=== PATIENT | female | born 1985 | race Caucasian/White ===

== ENCOUNTER 2017-11-13 20:31 | Emergency (ER) | payer OTHER ==
[~2017-11-13] VITALS: Ht 167.6 cm; Wt 68.0 kg
[~2017-11-13 20:31] MED LIST: AMOXIL 875 MG875 MG PO; AUGMENTIN 875-1 EACH PO; BACTRIM DS 8001 TAB PO; CYCLOBENZAPRINE5 M2 PO; IBUPROFEN800 M1 PO; MOBIC 15MG15 MG PO; VICODIN5-300 PO; ZOLMITRIPTAN2.5 MG PO
[2017-11-13] MEDS ORDERED: NEOMYCIN-POLYMY10 ML (22:03)
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
[2017-11-13 23:14] LABS: ABSOLUTE BASOPHIL COUNT 0 /CUMM (0.0-0.2); ABSOLUTE EOSINOPHIL COUNT 0.3 /CUMM (0.0-0.7); ABSOLUTE GRANULOCYTE CT 6.6 /CUMM (1.4-6.5); ABSOLUTE LYMPH COUNT 1.9 /CUMM (1.2-3.4); ABSOLUTE MONOCYTE COUNT 0.4 /CUMM (0.10-0.60); BASOPHIL % 0.3 % (0.0-2.0); EOSINOPHIL % 3.7 % (0-5); GRANULOCYTE % 71.2 % (42.2-75.2); HEMATOCRIT 39.8 % (37-47); MEAN CORPUSCULAR HGB 31.7 PG (27.0-31.0); MEAN CORPUSCULAR HGB CONC 35.6 G/DL (33.0-37.0); MEAN PLATELET VOLUME 8.1 FL (7.4-10.4); PLATELET COUNT 206 /CUMM (130-400); RBC DISTRIBUTION WIDTH 12.9 % (11.5-14.5); RED BLOOD CELL CT 4.47 /CUMM (4.20-5.40); WHITE BLOOD CELL COUNT 9.3 /CUMM (4.8-10.8)
[2017-11-13] MEDS ORDERED: KETOROLAC TROME10 M1 PO (23:45)
[2017-11-13] MEDS ORDERED: BACTRIM DS TAB1 EACH PO (23:45)
[2017-11-13] MEDS ORDERED: AMOXICILLIN500 M2 PO (23:45)
[2017-11-13 23:50] VITALS: BP 118/73
== END 2017-11-13 23:56 ==
LOC: ERH 20:31
PROVIDERS: Internal Medicine Interventional Cardiology
DX: L03.116 Cellulitis of left lower limb (principal); L08.0 Pyoderma
CPT/HCPCS: 87070; 96372; J1885; J2001

== ENCOUNTER 2017-11-16 16:18 | Emergency (ER) | payer OTHER ==
[~2017-11-16 16:18] MED LIST changes: +AMOXICILLIN500 M2 PO; +BACTRIM DS TAB1 EACH PO; +KETOROLAC TROME10 M1 PO; +NEOMYCIN-POLYMY10 ML
[2017-11-16 16:34] VITALS: BP 124/81
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
== END 2017-11-16 17:26 ==
LOC: ERH 16:18
DX: Z48.00 Encounter for change or removal of nonsurgical wound dressing (principal)